=== PATIENT | male | born 1955 | race African-American/Black ===

== ENCOUNTER 2025-01-15 11:51 | Day surgery (SDC) | payer OTHER ==
[2025-01-15] MEDS ORDERED: ONDANSETRON HCL 4 MG/2 ML VIAL ONE (13:51)
[2025-01-15] MEDS ORDERED: PROPOFOL 10 MG/ML 20 ML IV ONE ×2 (13:51→13:52)
[2025-01-15] MEDS ORDERED: METOCLOPRAMIDE HCL 5MG/ml INJ 2ml VIAL ONE (13:51)
--- NOTE | 2025-01-15 14:17 | DVHHP2 ---
GI H&P Pre-Op Assessment Date: 01/15/25 Chief complaint: Globus sensation, positive fit test HPI: per clinic note Past medical history: per clinic note Past surgical history: per clinic note Family history: per clinic note Physical exam: General: NAD, AAOX3 HEENT: PERRL, no scleral icterus, normal hearing, gums without lesions or bleeding, oropharynx clear without erythema or exudate. Neck: Supple without enlargement of the thyroid, or lymphadenopathy. Chest: Normal size and shape, no tenderness, lung gardner clear to auscultation and percussion, nonlabored breathing. Heart: RRR, no murmur Abdomen: non-distended, no tenderness to palpation, +BS, no hepatosplenomegaly Extremities: no edema Neurological: CN II-XII intact, sensation intact in all extremities, 5+ strength in all extremities Skin: No rashes, No jaundice Assessment: -Globus sensation, positive fit test Plan: - EGD - Colonoscopy - Risks (bleeding, infection, perforation, reaction to sedation medications and cardiopulmonary arrest) and benefit of the procedure were explained to patient. Patient agrees to undergo the procedure. HERMILO BACK MD Jan 15, 2025 14:17
[2025-01-15 14:19] VITALS: PULSE 80; RESP 20; TEMP 97.2; O2SAT 95
--- NOTE | 2025-01-15 14:19 | DVHOP2 ---
Operative Report DATE OF OPERATION: 01/15/25 PROCEDURE: Upper Endoscopy. PREOPERATIVE INDICATION: The patient is a 69 -year-old male undergoing endoscopy for globus sensation. POSTOPERATIVE DIAGNOSES: 1. Mild gastritis 2. Hiatal hernia 33-36 cm 3. The esophagus was normal in appearance. PROCEDURE PERFORMED BY: Basilio Carbajal SCOPE: Olympus videoendoscope. ASA CLASS: 3 PREOPERATIVE MEDICATIONS: MAC with Adams PROPERTY ACCOUNTANT PROCEDURE IN DETAIL: After obtaining an informed consent, the patient was placed on left lateral decubitus position. The patient was then sedated with the above medications. A bite block was placed between his teeth. The endoscope was then passed through the oropharynx, into the esophagus, and thro ugh the stomach and pylorus up to the second and third part of the duodenum. The duodenum was normal in appearance. There was mild gastritis. Gastric biopsies were obtained using cold forceps. There was hiatal hernia from 33-36 cm. The GE junction was normal in appearance at 33 cm. The esophagus was normal in appearance. The endoscope was then withdrawn. The patient tolerated the procedure well without difficulty. COMPLICATIONS : None SPECIMENS: Gastric biopsies DISPOSITION: D/C to home PLAN: 1. Await for biopsy result BASILIO CARBAJAL MD Jan 15, 2025 14:19
--- NOTE | 2025-01-15 14:21 | DVHOP2 ---
Operative Report DATE OF OPERATION: 01/15/25 PROCEDURE: Colonoscopy. PREOPERATIVE INDICATION: The patient is a 69 -year-old male undergoing colonoscopy for positive fit test. POSTOPERATIVE DIAGNOSES: 1. Two transverse colon polyps (2 mm, 3mm) were removed using cold forceps. 2. Diverticulosis in left colon. 3. Internal hemorrhoids PROCEDURE PERFORMED BY: Basilio Carbajal M.D. SCOPE: Olympus videocolonoscope. ASA CLASS: 3 PREOPERATIVE MEDICATIONS: MAC with Adams LEHR ATTENDANT PROCEDURE IN DETAIL: After obtaining an informed consent, the patient was placed on left lateral decubitus position. He was then sedated with the above medications. A rectal examination was performed that was normal. The colonoscope was then passed through the anus into the rectosigmoid and through the descending, transverse, and ascending colon up to the cecum with visualiz ation of the appendiceal orifice, base of the cecum and the ileocecal valve. Two transverse colon polyps (2 mm, 3mm) were removed using cold forceps. There was diverticulosis in the colon. There were internal hemorrhoids. The colonoscope was then withdrawn. The patient tolerated the procedure well without difficulty. WITHDRAWAL TIME: 7 minutes QUALITY OF THE PREP: Vandiver Bowel Prep score: 5 COMPLICATIONS : None SPECIMENS: Colon polyps DISPOSITION: D/C to home PLAN: 1. Repeat colonoscopy base on biopsy result BASILIO CARBAJAL MD Jan 15, 2025 14:21
--- NOTE | 2025-01-15 14:21 | DVHDS2 ---
Physician Discharge Progress N Final Diagnosis: Mild gastritis, hiatal hernia Colon polyps, diverticulosis, internal hemorrhoids Operations or Procedures: Operations or Procedures EGD with cold biopsies Colonoscopy with cold biopsy polypectomy Condition on Discharge: Good Disposition: Home Discharge Instructions: Diet: Regular Activity: No Restrictions, As Tolerated Medications: Resume previous home medications Follow Up Care: Discharge Statement: "Patient was advised to return to the ER or call 911 if any headaches, di zziness, shortness of breath, chest pain, abdominal pain, bleeding, fevers, or worsening of medical condition. Patient was counseled about treatment plan, medications, possible side effects, patientverbalized understanding. All questions were answered to the best of my ability. This discharge took greater then 30 minutes in planning, reviewing documentation, counseling the patient, and discussing with other team members." HERMILO BACK MD Jan 15, 2025 14:21
[2025-01-15 14:29] VITALS: PULSE 68; RESP 16; O2SAT 95
[2025-01-15 15:00] VITALS: BP 141/67; PULSE 63; RESP 20; O2SAT 96
== END 2025-01-15 15:09 | disposition home or self-care (01) ==
LOC: GI 11:51
PROVIDERS: ATTEND Internal Medicine Gastroenterology
DX: R19.5 Other fecal abnormalities (principal); D12.3 Benign neoplasm of transverse colon; K63.5 Polyp of colon; K57.30 Diverticulosis of large intestine without perforation or abscess without bleeding; K64.8 Other hemorrhoids; K44.9 Diaphragmatic hernia without obstruction or gangrene; K29.50 Unspecified chronic gastritis without bleeding; B96.81 Helicobacter pylori [H. pylori] as the cause of diseases classified elsewhere; K63.89 Other specified diseases of intestine; I10 Essential (primary) hypertension; F17.210 Nicotine dependence, cigarettes, uncomplicated; Z85.46 Personal history of malignant neoplasm of prostate; Z96.643 Presence of artificial hip joint, bilateral; Z98.890 Other specified postprocedural states; Z88.0 Allergy status to penicillin
CPT/HCPCS: 43239; 45380; 88305; 88342; J2405; J2704; J2765; J7030

== ENCOUNTER 2025-04-06 09:37 | Inpatient (IN) | payer OTHER ==
[~2025-04-06] VITALS: Ht 179.1 cm; Wt 74.1 kg
--- NOTE | 2025-04-06 09:46 | ECG ---
[facility] Test Date: 2025-04-06 Test Time: 09:41:58 Pat Name: NURIS EID Department: ED Room: 0249T Gender: M Coding Coordinator: HANANE : 1955 Requested By: ROBERTA SUE Order Number: [id number] Reading MD: Hector Parks Measurements Intervals [place] Rate: 59 P: 68 AL: 143 QRS: 26 QRSD: 106 T: 3 QT: 433 QTc: 429 Interpretive Statements Sinus rhythm Abnormal R-wave progression, early transition LVH with secondary repolarization abnormality Electronically Signed On 04-09-2025 19:21:32 PST by Hector Parks Please click the below link to view image of tracing.
[2025-04-06 10:22] LABS: Hematocrit 42.9 % (41.0-53.0); Hemoglobin 13.8 g/dL (13.5-17.5); Mean Corpuscular Hemoglobin 30.2 pg (28.0-32.0); Mean Corpuscular Volume 93.8 fL (80.0-100.0); Nucleated Red Blood Cells % 0.2 %
[2025-04-06 10:29] LABS: Chloride 103 mmol/L (98-107); Potassium 3.8 mmol/L (3.5-5.1); Sodium 142 mmol/L (136-145)
[2025-04-06 10:30] LABS: Anion Gap 6 (5-15)
[2025-04-06 10:31] LABS: Calcium 10.1 mg/dL (8.7-10.4)
[2025-04-06 10:35] LABS: BUN/Creatinine Ratio 10.3 (10.0-20.0); Blood Urea Nitrogen 11 mg/dL (9-23)
--- NOTE | 2025-04-06 10:42 | DVH ---
EXAM: XY CHEST PORTABLE HISTORY: CP COMPARISON: None TECHNIQUE: Portable upright AP view of the chest was performed. FINDINGS: No pneumothorax, consolidative infiltrates, or pulmonary edema. There is mild elevation of the left hemidiaphragm. The heart is not enlarged. The aortic arch is likely ectatic. There is a metallic density overlying the midline at the T8- T9 level. IMPRESSION: 1. No acute intrathoracic process. 2. Probable ectasia of the aortic arch. Recommend follow-up contrasted CT scan of the chest for better characterization if not already performed elsewhere. 3. Metallic foreign body in the midline of the lower chest, etiology unknown. This may also be better characterized with CT scan of the chest.
[2025-04-06 10:43] LABS: Carbon Dioxide 33 mmol/L (20-31); Glucose 122 mg/dL (74-106)
--- NOTE | 2025-04-06 10:45 | ECG ---
[facility] Test Date: 2025-04-06 Test Time: 10:44:38 Pat Name: NURIS EID Department: ED Room: 0249T Gender: M Insulation Power Unit Tender: DIANNA : 1955 Requested By: ROBERTA SUE Order Number: [id number] Reading MD: Hector Parks Measurements Intervals [place] Rate: 53 P: 16 MT: 122 QRS: 14 QRSD: 100 T: -25 QT: 417 QTc: 392 Interpretive Statements Sinus rhythm Abnormal R-wave progression, early transition LVH with secondary repolarization abnormality Baseline wander in lead(s) V4 Electronically Signed On 04-09-2025 19:21:45 PST by Hetcor Parks Please click the below link to view image of tracing.
--- NOTE | 2025-04-06 10:58 | ED.PDOC ---
HPI Comments This is a 69 year old male presenting to the ED with chief complaint of chest pain. Patient reports that he has been experiencing intermittent left sided chest pressure with associated SOB for the past month. Patient relays that he was advised to come to the ED for further evaluation by his . Patient denies any fever, chills, dizziness, N/V, headache, or cough. Chief Complaint: Chest Pain Time Seen by MD: 10:53 Reviewed Notes: Nurses Notes, Medications, Allergies Allergies: Coded Allergies: Penicillins (Verified Allergy, Unknown, 04/06/25) Information Source: Patient Mode of Arrival: Ambulatory Severity: Moderate Timing: Months Duration: Since onset Prehospital treatment: None Location: Chest (L) Radiation: No Radiation Quality: Pressure Onset: At Rest Cardiac Risk Factors: HTN PE Risk Factors: None History of: None Associated Signs and Symptoms: SOB Past Medical History PAST MEDICAL HISTORY: HTN Surgical History: Denies all surgeries Family History Family History: Reviewed,noncontributory to illness Social History Smoker: Non-Smoker Alcohol: Denies ETOH Use Drugs: Denies Drug Use Lives In: Home Constitutional: denies: chills, diaphoresis, fatigue, fever, malaise, sweats, weakness, others EENTM: denies: blurred vision, double vision, ear bleeding, ear discharge, ear drainage, ear pain, ear ringing, eye pain, eye redness, hearing loss, mouth pain, mouth swelling, nasal discharge, nose bleeding, nose congestion, nose pain, photophobia, tearing, throat pain, throat swelling, voice changes, others Respiratory: reports: shortness of breath; denies: cough, hemoptysis, orthopnea, SOB at rest, SOB with excertion, stridor, wheezing, others Cardiovascular: reports: chest pain; denies: dizzy spells, diaphoresis, Dyspnea on exertion, edema, irregular heart beat, left arm pain, lightheadedness, palpitations, PND, syncope, others Gastrointestinal: denies: abdomen distended, abdominal pain, blood streaked bowels, constipated, diarrhea, dysphagia, difficulty swallowing, hematemesis, melena, nausea, poor appetite, poor fluid intake, rectal bleeding, rectal pain, vomiting, others Genitourinary: denies: burning, dysuria, flank pain, frequency, hematuria, incontinence, penile discharge, penile sore, pain, testicle pain, testicle swelling, urgency, others Neurological: denies: dizziness, fainting, headache, left sided numbness, left sided weakness, numbness, paresthesia, pre-existing deficit, right sided numbness, right sided weakness, seizure, speech problems, tingling, tremors, weakness, others Musculoskeletal: denies: back pain, gout, joint pain, joint swelling, muscle pain, muscle stiffness, neck pain, others Integumetry: denies: bruises, change in color, change in hair/nails, dryness, laceration, lesions, lumps, rash, wounds, others Allergic/Immunocompromised: denies: Difficulty Healing, Frequent Infections, Hives, Itching, others Hematologic/Lymphatic: denies: anemia, blood clots, easy bleeding, easy bruising, swollen glands, others Endocrine: denies: excessive hunger, excessive sweating, excessive thirst, excessive urination, flushing, intolerance to cold, intolerance to heat, unexplained weight gain, unexplained weight loss, others Psychiatric: denies: anxiety, bipolar disorder, depression, hopeless, panic disorder, schizophrenia, sleepless, suicidal, others All Other Systems: Reviewed and Negative Physical Exam General Appearance: No Apparent Distress, Normal HEENT: Normal ENT Inspection, Pharynx Normal, TMs Normal Neck: Full Range of Motion, Non-Tender, Normal, Normal Inspection Respiratory: Chest Non-Tender, Lungs Clear, No Accessory Muscle Use, No Respiratory Distress, Normal Breath Sounds Cardiovascular: No Edema, No JVD, No Murmur, No Gallop, Normal Peripheral Pulses, Regular Rate/Rhythm Breast Exam: Deferred Gastrointestinal: No Organomegaly, Non Tender, No Pulsatile Mass, Normal Bowel Sounds, Soft Genitalia: Deferred Pelvic: Deferred Rectal: Deferred Extremities: No calf tenderness, Normal capillary refill, Normal inspection, Normal range of motion, Non-tender, No pedal edema Musculoskeletal : Apperance: Normal Neurologic: Alert, utility system repairer II-XII nml as Tested, No Motor Deficits, Normal Affect, Normal Mood, No Sensory Deficits Cerebellar Function: Normal Reflexes: Normal Skin: Dry, Normal Color, Warm Lymphatic: No Adenopathy Was a procedure done? Was a procedure done?: No CP Differential Dx Differential Diagnosis: MAT, WI, PAC's Differential Diagnosis: HTN Essential, HTN Accelerated Differential Diagnosis: Gastritis, Myocardial Infarction, Pericarditis X-Ray, Labs, Meds, VS Vital Signs Date Time Temp Pulse Resp B/P (MAP) Pulse Ox O2 Delivery O2 Flow Rate FiO2 04/06/25 12:49 64 04/06/25 11:50 98.4 57 14 141/77 (98) 97 98.4 04/06/25 10:44 53 04/06/25 09:41 98.2 58 16 142/77 98 98.2 04/06/25 09:41 59 Lab Test 04/06/25 12:42 04/06/25 11:12 04/06/25 09:54 Range/Units Troponin I High Sensitivity 5 5 5 </=54 ng/L White Blood Count 6.4 4.4-10.8 10^3/uL Red Blood Count 4.57 4.5-5.90 10^6/uL Hemoglobin 13.8 13.5-17.5 g/dL Hematocrit 42.9 41.0-53.0 % Mean Corpuscular Volume 93.8 80.0-100.0 fL Mean Corpuscular Hemoglobin 30.2 28.0-32.0 pg Mean Corpuscular Hemoglobin Concent 32.2 32.0-36.0 g/dL Red Cell Distribution Width 14.5 H 11.8-14.3 % Platelet Count 276 140-450 10^3/uL Mean Platelet Volume 7.7 6.9-10.8 fL Neutrophils (%) (Auto) 68.6 37.0-80.0 % Lymphocytes (%) (Auto) 20.4 10.0-50.0 % Monocytes (%) (Auto) 8.8 0.0-12.0 % Eosinophils (%) (Auto) 1.4 0.0-7.0 % Basophils (%) (Auto) 0.8 0.0-2.0 % Neutrophils # (Auto) 4.4 1.6-8.6 10 ^3/uL Lymphocytes # (Auto) 1.3 0.4-5.4 10 ^3/uL Monocytes # (Auto) 0.6 0-1.3 10 ^3/uL Eosinophils # (Auto) 0.1 0-0.8 10 ^3/uL Basophils # (Auto) 0.1 0-0.2 10 ^3/uL Nucleated Red Blood Cells 0.2 % Sodium Level 142 136-145 mmol/L Potassium Level 3.8 3.5-5.1 mmol/L Chloride Level 103 98-107 mmol/L Carbon Dioxide Level 33 H 20-31 mmol/L Anion Gap 6 5-15 Blood Urea Nitrogen 11 9-23 mg/dL Creatinine 1.07 0.700-1.30 mg/dL Glomerular Filtration Rate Calc 76 >90 mL/min BUN/Creatinine Ratio 10.3 10.0-20.0 Serum Glucose 122 H 74-106 mg/dL Calcium Level 10.1 8.7-10.4 mg/dL Time of 1ST Reevaluation: 10:50 Reevaluation 1ST: Unchanged Patient Education/Counseling: Diagnosis, Treatment Family Education/Counseling: No Family Present SEPSIS Sepsis Screen Date sepsis recognized/suspect: Apr 06, 2025 Time Sepsis recognized/suspect: 940 Recent Procedure: No On Antibiotic Therapy: No Respiratory Rate >20: No Heart Rate >90: No Temp<36 C (96.8 F) or >38.3 C: No SBP <90 or MAP <65 mmHG: No New Acute Mental Status Change: No Is the patient on CPAP, BIPAP,: No Physician Orders Chest Portable (04/06/25 09:44) Vital Signs Date Time Temp Pulse Resp B/P (MAP) Pulse Ox O2 Delivery O2 Flow Rate FiO2 04/06/25 12:49 64 04/06/25 11:50 98.4 57 14 141/77 (98) 97 98.4 04/06/25 10:44 53 04/06/25 09:41 98.2 58 16 142/77 98 98.2 04/06/25 09:41 59 Laboratory Tests Test 04/06/25 09:54 White Blood Count 6.4 10^3/uL (4.4-10.8) Departure 1 Departure Time of Disposition: 14:57 (Patient presented with chest pain that was concerning for possible STEMI, ACS, PE, Pneumonia, Muscle Strain, COPD, Dissection. Data: 1. I ordered and reviewed the result of at least 3 labs including a CBC, BMP, and Troponin. 2. I independently interpreted the following tests: EKG which shows sinus arrhythmia and Chest X-ray which shows ectasia of the aorta.Risk:This patient has a high risk of morbidity due to further diagnostic testing or treatment and may suffer from an acute cardiac or respiratory disorder. Workup reveals concern for ACS and patient should be admitted for further workup and possible expert consultation. ) Impression: Primary Impression: Acute chest pain Disposition: ADMITTED INPATIENT Admit to: Tele Condition: Guarded Critical Care Note Critical Care Time?: No Stability Stability form required: No Heart Score Heart Score: Heart Score Response (Comments) Value History Highly Suspicious 2 EKG Repolarization Disturb 1 Age >65 2 Risk Factors 1 or 2 risk factors 1 Troponin 1-2 x's Normal limit 1 Total 7 I personally scribed for ROBERTA SUE MD ([email or web address]) on 04/06/25 at 10:58. Electronically submitted by Ankit Onofre ([email or web address]). ROBERTA SUE MD Apr 06, 2025 10:58
--- NOTE | 2025-04-06 12:50 | ECG ---
[facility] Test Date: 2025-04-06 Test Time: 12:49:34 Pat Name: NURIS EID Department: ED Room: 0249T Gender: M Ingot Passer: DIANNA : 1955 Requested By: ROBERTA SUE Order Number: [id number] Reading MD: Hector Parks Measurements Intervals [place] Rate: 64 P: 66 [place]: 147 QRS: 9 QRSD: 101 T: -50 QT: 430 QTc: 444 Interpretive Statements Sinus rhythm Abnormal R-wave progression, early transition LVH with secondary repolarization abnormality Electronically Signed On 04-09-2025 19:22:12 PST by Hector Parks Please click the below link to view image of tracing.
[2025-04-06] MEDS ORDERED: NITROGLYCERIN 0.4 MG SL TAB SL PRN (16:30)
[2025-04-06] MEDS ORDERED: ONDANSETRON HCL 4 MG/2 ML VIAL IV PRN (16:30)
[2025-04-06] MEDS ORDERED: MORPHINE SULFATE INJ 2 MG/ml SYRG IV PRN ×2 (16:30)
[2025-04-06] MEDS ORDERED: ACETAMINOPHEN 325 MG TAB PO PRN (16:30)
[2025-04-06] MEDS: LOSARTAN POTASSIUM 50 MG TAB PO ONE (17:30)
[2025-04-06 22:27] VITALS: BP 130/79; PULSE 56; RESP 19; TEMP 97.9; O2SAT 100
[2025-04-06 22:31] VITALS: BP 130/79; PULSE 56; RESP 19; TEMP 97.9; O2SAT 100
[2025-04-06] MEDS ORDERED: LOSA100T33 PO (22:46)
[2025-04-06] MEDS ORDERED: PANT40TA57 PO (22:46)
[2025-04-07] VITALS (10 sets, daily range): BP systolic 129–177; BP diastolic 69–100; PULSE 53–67; RESP 16–20; TEMP 97.6–98.5; O2SAT 94–99
[2025-04-07 05:44] LABS: Hematocrit 40.1 % (41.0-53.0); Hemoglobin 13.3 g/dL (13.5-17.5); Mean Corpuscular Hemoglobin 30.8 pg (28.0-32.0); Mean Corpuscular Volume 92.8 fL (80.0-100.0); Nucleated Red Blood Cells % 0.0 %
[2025-04-07 06:04] LABS: Alanine Aminotransferase 14 U/L (7-40); Albumin 3.8 g/dL (3.2-4.8); Alkaline Phosphatase 95 U/L (46-116); Anion Gap 9 (5-15); BUN/Creatinine Ratio 11.6 (10.0-20.0); Bilirubin, Total 0.8 mg/dL (0.2-1.0); Blood Urea Nitrogen 11 mg/dL (9-23); Calcium 9.9 mg/dL (8.7-10.4); Carbon Dioxide 29 mmol/L (20-31); Chloride 104 mmol/L (98-107); Potassium 3.5 mmol/L (3.5-5.1); Sodium 142 mmol/L (136-145); Total Protein 7.2 g/dL (5.7-8.2)
[2025-04-07 06:08] LABS: Glucose 108 mg/dL (74-106)
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
[2025-04-07] MEDS: PANTOPRAZOLE 40 MG/10 ML VIAL INJ IV SCH (09:44)
[2025-04-07] MEDS: HYDROcodone-ACET 5/325MG TAB PO PRN (09:47)
[2025-04-07] MEDS: ENOXAPARIN SOD 40 MG/0.4 ML SYRINGE SC SCH (09:48)
[2025-04-07] MEDS ORDERED: IOHEXOL 350 MG/ML 100ML IJ ONE (11:44)
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
[2025-04-07 12:45] LABS: Triglycerides 107 mg/dL (< 150)
[2025-04-07 12:47] LABS: Cholesterol 166 mg/dL (< 200); HDL Cholesterol 48 mg/dL (40-59)
--- NOTE | 2025-04-07 13:41 | DVH ---
CTA Chest with intravenous contrast INDICATION: chest pain COMPARISON: XY CHEST PORTABLE on DOS: 04/06/25 TECHNIQUE: Multidetector spiral CTA of the chest was performed of the chest with intravenous contrast. PULMONARY ANGIOGRAPHY PROTOCOL was utilized using a bolus- tracking technique centered on the main pulmonary artery. Axial, coronal and sagittal multiplanar and MIP reformats were performed. Radiation Dose : 1. Chest: CTDI volume is 41.44 mGy. Dose-length product is 592.57 mGy*cm The dose indicators for CT are the volume Computed Tomography (CT) Dose Index (CTDIvol) and the Dose Length Product (DLP), and are measured in units of mGy and mGy-cm, respectively. These indicators are not patient dose, but values generated from the CT scanner acquisition factors. The report includes radiation exposure data for exposures received during this examination. FINDINGS: Pulmonary artery: No pulmonary embolism Lower neck: Normal thyroid. Lungs: Central airways patent. Moderate paraseptal emphysema. Mild centrilobular emphysema. No suspect pulmonary nodules. Mild dependent atelectatic changes. Heart/Vascular Structures: Large infiltrative appearing anterior mediastinal mass measuring 9.2 x 6.4 cm extending superiorly to the level of the thoracic inlet. Mass circumferentially encases the left upper lobe and lingular pulmonary arteries which appear narrowed. Mass is contiguous with the left hilum as well as the subaortic left lower paratracheal soft tissues. Mass encases the left internal mammary artery and abuts the posterior cortex of the sternum and multiple left-sided ribs. Coronary calcifications. Mild multichamber cardiac enlargement. Lymph Nodes: No adenopathy Pleura: No pleural effusion or significant pneumothorax. Musculoskeletal: No acute osseous abnormality. Soft tissues: Normal. Upper abdomen: Limited portions of the upper abdomen are unremarkable. IMPRESSION: Aggressive appearing infiltrative anterior mediastinal mass suggestive of malignancy. This most commonly represents a thymic malignancy or lymphoma although metastatic disease from a lung primary, aggressive germ-cell tumor, or thyroid malignancy are in the differential.
--- NOTE | 2025-04-07 13:45 | DVH ---
CLINICAL HISTORY: r/o dvt TECHNIQUE: Color and duplex doppler imagine of the bilateral lower extremity veins was performed. Vessel compression and augmentation if possible was also performed. COMPARISON: None FINDINGS: Right Lower Extremity: Right common femoral vein: Normal compressibility and flow. Right superficial femoral vein: Normal compressibility and flow. Right popliteal vein: Normal compressibility and flow. Left Lower Extremity: Left common femoral vein: Normal compressibility and flow. Left superficial femoral vein: Normal compressibility and flow. Left popliteal vein: Normal compressibility and flow. IMPRESSION: NO SONOGRAPHIC EVIDENCE FOR DEEP VENOUS THROMBOSIS IN THE BILATERAL LOWER EXTREMITY VEINS.
--- NOTE | 2025-04-07 16:26 | DVHSR ---
APPROVED REPORT EXAM: Two-dimensional and M-mode echocardiogram with Doppler and color Doppler. Blood Pressure: 143/69 mmHg INDICATION Chest Pain RISK FACTORS Height: 5'10", Weight: 159 DIMENSIONS LVDd 4.8 (3.8-5.7cm) LA (2D) 4.5 (1.9-4.0cm) Aortic Root 3.4 (2.0-3.7cm) LVDs 3.5 (2.5-4.0cm) LA (MM) (1.9-4.0cm) Aortic Cusp Exc 2.1 (1.5-2.0cm) EF (%) 53.0 (55-70%) Rt. Atrium 3.9 (1.9-4.0cm) Asc. Aorta cm IVSd 0.9 (0.7-1.1cm) RV (D) (1.8-2.4cm) Mitral Valve Mitral Mitral Stenosis E wave 0.67m/s MV Mean GR. mmHg A wave 0.66m/s MV Peak GR. mmHg E/A ratio 1.0 2D MVA cm2 DECEL Time 153ms PRESS 1/2 Time ms Aortic Valve Aortic Valve Aortic Stenosis V1 0.98m/s AO Mean GR. 4mmHg V2 1.45m/s AO Peak GR. 8mmHg LVOT Diameter 2.1 (1.8-2.4cm) Doppler HEATHER 2.34cm2 Tricuspid Valve TR Velocity 2.73m/s RVSP 33mmHg Other Information Quality : Technically Limited Rhythm : Technically limited study due to body habitus. Conclusion Left ventricle: Left ventricle is normal-sized with normal systolic function. LVEF was around 55-60%. There was no gross wall motion abnormality. Diastolic function of left ventricle was considered normal for age. Right ventricle: Right ventricle was mildly dilated with normal systolic function. Both atria were normal-sized. Aortic valve: Aortic valve was trileaflet. There was trace aortic insufficiency. There was no aortic stenosis. There was [id number] mitral regurgitation. There was mild tricuspid regurgitation. Pulmonary valve revealed trivial pulmonary insufficiency. Right ventricular systolic pressure was assessed at 35 mm Hg. There was no pericardial effusion.
[2025-04-07] MEDS: DOCUSATE SOD 100 MG CAP PO PRN (20:06)
[2025-04-07] MEDS: TEMAZEPAM 15 MG CAP PO PRN (23:11)
[2025-04-08] VITALS (7 sets, daily range): BP systolic 130–168; BP diastolic 66–93; PULSE 51–87; RESP 16–20; TEMP 97.5–98.4; O2SAT 95–99
[2025-04-08] MEDS: hydrALAZINE HCL 20 MG/ML VL IV PRN (00:10)
[2025-04-08] MEDS: LOSARTAN POTASSIUM 50 MG TAB PO SCH (09:56)
[2025-04-08] MEDS: hydroCHLOROthiazide 25 MG TAB PO SCH (09:56)
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
[2025-04-08] MEDS: REGADENOSON 0.4 MG/5 ML SYRG IV ONE ×2 (10:37→10:44)
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
[2025-04-08 13:02] LABS: INR 0.99 (0.9-1.15); Partial Thromboplastin Time 25.9 SEC (24.5-34.5); Prothrombin Time 10.5 sec (9.3-11.8)
--- NOTE | 2025-04-08 16:41 | DVH ---
ULTRASOUND SOFT TISSUE HEAD AND NECK CLINICAL INDICATION: poss thyroid malignancy TECHNIQUE: Multiple real time sonographic images of the thyroid were obtained. COMPARISON: None available at this time. FINDINGS: RIGHT LOBE OF THE THYROID: Measures 4.5 by 2.2 x 1.1 cm. Volume of the right lobe of the thyroid is 5.7 mL. Thyroid parenchyma appears homogeneous. There are no nodules or cysts. LEFT LOBE OF THE THYROID: Measures approximately 3.8 X 1.9 X 1.4 cm. VOLUME OF THE LEFT LOBE OF THE THYROID IS 4.1 ML. PARENCHYMA APPEARS HOMOGENEOUS. THERE ARE NO CYSTS OR NODULES. ISTHMUS: Measures 0.7 cm. IMPRESSION: 1. Normal Thyroid. 2. Right lobe of the thyroid measures 4.5 cm. Left lobe of the thyroid measures 3.8 cm. 3. No thyroid nodules or cysts. [employer] TI-RADS Categories and Recommendations (2017): TR1: 0 points, Benign, No FNA TR2: 2 points, Not suspicious, No FNA TR3: 3 points, Mildly suspicious, FNA if > or = 2.5 cm, Follow if > or = 1.5 cm TR4: 4-6 points, Moderately Suspicious, FNA if > or = 1.5 cm, Follow if > or = 1.0 cm TR5: 7+ points, Highly Suspicious, FNA if > or = 1.0 cm, Follow if > or = 0.5 cm Follow-up ultrasound guidelines: TR5: yearly for 5 years, if no growth or change in TI-RADS level TR4: at 1, 2, 3 and 5 years, if no growth or change in TI-RADS level TR3: at 1, 3 and 5 years, if no growth or change in TI-RADS level If increased but below threshold for FNA, repeat in one year. Source: ACR Thyroid Imaging, Reporting and Data System (TI-RADS): White Paper of the ACR TI-RADS Committee. Fito et al., J Am [employer] Radiol 2017;14:587-595.
[2025-04-09] VITALS (8 sets, daily range): BP systolic 126–152; BP diastolic 80–97; PULSE 61–80; RESP 17–18; TEMP 97.9–98.6; O2SAT 96–98
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
[2025-04-09 08:07] LABS: Free Thyroxine Index 2.2 (1.2-4.9)
[2025-04-09] MEDS ORDERED: LIDOCAINE 2%HCL (LOCAL ANESTH.) INJ 10ml MDV ONE (08:37)
[2025-04-09] MEDS ORDERED: MIDAZOLAM HCL 2MG/2ML 2ml VIAL (1mg/ml) IV ONE (08:45)
[2025-04-09] MEDS ORDERED: fentaNYL CITRATE 100 MCG/2 ML VL IV ONE (08:45)
[2025-04-09] MEDS ORDERED: IOHEXOL 300 MG/ML 100ML BOTTLE IJ ONE (09:06)
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
--- NOTE | 2025-04-09 12:53 | DVH ---
CT CHEST WITHOUT CONTRAST, HISTORY: MEDIASTINAL BX PROCEDURE: Informed consent was obtained. The patient was placed supine on the CT scanner. A limited localization CT scan of the lung was obtained. The skin overlying the lesion was prepped with chlorhexidine which was allowed to dry and draped in sterile fashion. Time out was performed. The skin and soft tissues were infiltrated with Xylocaine, and IV sedation was administered. With intermittent CT guidance, a 17 gauge Temno outer coaxial guiding needle was advanced into the anterior mediastinal mass. The needle position was confirmed with CT scan. 2 core biopsies were obtained using Temno inner 18 gauge biopsy needle. The specimens were sent in formalin to pathology for analysis. The needle was withdrawn, and post procedural CT obtained through the biopsy region. No immediate complication was identified, and patient was transport to recovery in stable condition without respiratory distress. DLP = 1903 mGy-cm. SEDATION: Dr. Juan Carlos Lopez was personally responsible for the administration of moderate sedation during the procedure performed, including the use of an independent trained observer who had no other duties during the procedure. The drugs utilized were IV fentanyl and versed (see nursing log for details). The total time of supervision by the attending physician was approximately 30 minutes. FINDINGS: Limited CT scan demonstrates a large soft tissue mass in the anterior mediastinum. No significant post biopsy hemorrhage or pneumothorax is noted. IMPRESSION/PLAN: CT guided anterior mediastinal mass biopsy. Pathology pending.
[2025-04-09] MEDS: POLYETHYLENE GLYCOL 17 GM PWDR PO ONE (14:30)
[2025-04-10 01:00] VITALS: BP 122/82; PULSE 72; RESP 18; TEMP 98.1; O2SAT 97
[2025-04-10 05:00] VITALS: BP 125/88; PULSE 77; RESP 18; TEMP 97.6; O2SAT 99
[2025-04-10 08:00] VITALS: PULSE 56
[2025-04-10 08:04] VITALS: PULSE 61; RESP 17; O2SAT 97
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
[2025-04-10 09:00] VITALS: BP 144/79; PULSE 66; RESP 17; TEMP 97.9; O2SAT 98
[2025-04-10] MEDS ORDERED: DOCU-96 PO (12:33)
[2025-04-10] MEDS ORDERED: HYDR25TA5 PO (12:33)
[2025-04-10 14:40] VITALS: BP 125/73; PULSE 62; RESP 20; TEMP 97.7; O2SAT 97
--- NOTE | 2025-04-13 09:34 | DVHSR ---
APPROVED REPORT Exam: Nuclear Stress Test Indication: Chest pain BMI: 0 Stress Test Details Stress Test: Pharmacologic stress testing performed using 0.4 mg of regadenoson per 5 mL given IV over 10 seconds. HR Resting HR: 64 bpm Max Heart Rate (APMHR): 152.620913 bpm Max HR Achieved: 116 bpm Target HR (85% APMHR): 129.945786 bpm % of APMHR: 76.32 Recovery HR: 97 bpm BP Resting BP: 138/92 mmHg Recovery BP: 143/75 mmHg ECG Resting ECG: Sinus Rhythm Clinical Reason for Termination: Completed protocol Nurse Comments Recieved pt. from [employer]. A/Ox4 on RA. Connected to java application developer, VS stable. PIV flushes well. Reviewed POC. Pt. verbalized understanding of procedure including risks and side effects, agrees for stress testing. Lexiscan stress test performed per protocol. [employer] tech administered Cardiolite. Pt. tolerated well. Pt. stable, no change on exam. VS returned to baseline. Transferred to [employer] via wheelchair w/ tech. Stress ECG Conclusion lvef 46% mild dilatd LV no severe ischemia noted normal pefuison PVCs on stress portion NM EXAM: Myocardial Perfusion REST/STRESS Imaging Protocol: Rest Tc-99m/Stress Tc-99m 1 day Resting Data Rest SPECT myocardial perfusion imaging was performed in supine position 60 minutes following the intravenous injection of 10.9 mCi of Tc-99m Sestamibi. Time of rest injection: 09:30 Date: 04/08/2025 Time of rest imagin:30 Date: 04/08/2025 Administration Route: IV Administration Site: Left Arm Pharmacologic Stress Pharmacologic stress test was performed by injecting Regadenoson 0.4 mg IV push followed by the intravenous injection of 29.3 mCi of Tc-99m Sestamibi. Time of stress injection: 10:35 Date: 04/08/2025 Time of stress imagin:35 Date: 04/08/2025 Administration Route: IV Administration Site: Left Arm Gated Stress SPECT was performed 60 minutes after stress injection. The images were gated to evaluate regional wall motion and calculate left ventricular ejection fraction. Stress only was performed in the Supine position. Nuclear Conclusion Nuclear Findings: negative for ischemia lvef 46% mild dilatd LV no severe ischemia noted normal pefuison PVCs on stress portion
== END 2025-04-10 15:20 | disposition home or self-care (01) | DRG 607 ==
LOC: ER 09:37 → OVERFLOW 16:18 → TELE-EAST 04-07 21:09
PROVIDERS: ADMIT Hospitalist; ATTEND Hospitalist
PROC: 0W9 Anatomical Regions, General, Drainage (ICD-10-PCS; principal; 2025-04-09)
DX: R22.2 Localized swelling, mass and lump, trunk (principal); F03.90 Unspecified dementia, unspecified severity, without behavioral disturbance, psychotic disturbance, mood disturbance, and anxiety; I10 Essential (primary) hypertension; J43.8 Other emphysema; I34.0 Nonrheumatic mitral (valve) insufficiency; R07.89 Other chest pain; I25.10 Atherosclerotic heart disease of native coronary artery without angina pectoris; R00.1 Bradycardia, unspecified; R79.89 Other specified abnormal findings of blood chemistry; Z80.42 Family history of malignant neoplasm of prostate; Z82.49 Family history of ischemic heart disease and other diseases of the circulatory system; Z85.46 Personal history of malignant neoplasm of prostate; Z86.0100 Personal history of colon polyps, unspecified; Z87.891 Personal history of nicotine dependence; Z88.0 Allergy status to penicillin
CPT/HCPCS: 10005; 36415; 71045; 71250; 71275; 76536; 77012; 78452; 80048; 80053; 80061; 82105; 82378; 83880; 84443; 84484; 85025; 85379; 85610; 85730; 93005; 93017; 93306; 93970; G0378; J2003; J2250; J2470